=== PATIENT | female | born 1980 | race Caucasian/White ===

== ENCOUNTER 2016-08-27 11:23 | Emergency (ER) | payer OTHER ==
[~2016-08-27] VITALS: Ht 162.6 cm; Wt 95.0 kg
[~2016-08-27 11:23] MED LIST: ALBU6.7H INH; FAMC500T23 PO; PERC7.5T13 PO
[2016-08-27 11:24] VITALS: BP 117/65; PULSE 64; RESP 16; TEMP 97.4; O2SAT 100
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
[2016-08-27 13:10] VITALS: BP 114/66; PULSE 62; RESP 13; O2SAT 98
[2016-08-27] MEDS ORDERED: TRAM150C6 PO (13:13)
--- NOTE | 2016-08-27 13:15 | PD ---
HPI Chief Complaint: Dizziness Time Seen by Provider: 13:04 Travel History International Travel<30 days: No Contact w/Intl Traveler<30days: No Traveled to known affect area: No History of Present Illness HPI 35-year-old female came to the emergency room with history of dizziness, nausea and vomiting that started this morning. Patient gives an elaborate history since the morning when she woke up on all this started. She vomited 4 times and they were all associated with nausea. She says she was not feeling well since she woke up and went to work nonetheless. And then culminated into vomiting and shaking and dizziness especially with changing positions. No history of diarrhea. She is otherwise a healthy person. Her vital signs were stable in triage. She had workup initiated at triage by the provider in triage prior to coming to the ER. ON LICENSE OF [facility] Past Medical History Asthma: Yes Anxiety: Yes Diminished Hearing: No Respiratory: Yes (ASTHMA) Migraines: Yes ?: Not LMP: 08/20/16 : 3 Para: 0 Miscarriage: 2 : 1 Ectopic : Yes Dilation and Curettage (D&C): Yes Past Surgical History Narrative Surgical List of her past medical, surgical, social and family history is reviewed from the nursing note. Other Surgery: Yes (ADNOIDS REMOVED.) Social History Alcohol Use: No Tobacco Use: No Substance Use: No Allergies-Medications (Allergen,Severity, Reaction): Coded Allergies: [place] (Verified Allergy, Severe, HIVES, 08/27/16) Cashew (Verified Allergy, Severe, HIVES, 08/27/16) Iodine (Verified Allergy, Severe, ITCHING AND HIVES, 08/27/16) Morphine (Verified Allergy, Mild, HIVES, 08/27/16) Comments List of her allergies reviewed from the nursing note. Reported Meds & Prescriptions Reported Meds & Active Scripts Active Meclizine (Meclizine HCl) 25 Mg Chew 25 Mg CHEW TID Reported Tramadol ER 24 HR (Tramadol HCl) 150 Mg Caper 150 Mg PO DAILY Narrative Medication List of her home medications reviewed from the nursing note. Review of Systems Except as stated in HPI: all other systems reviewed are Neg Physical Exam Narrative GENERAL: Awake, alert, anxious, moderate distress SKIN: Warm and dry. HEAD: Atraumatic. Normocephalic. EYES: Pupils equal and round. No scleral icterus. No injection or drainage. ENT: No nasal bleeding or discharge. Dry mucous membrane. NECK: Trachea midline. No JVD. CARDIOVASCULAR: Regular rate and rhythm. No murmur appreciated. RESPIRATORY: No accessory muscle use. Clear to auscultation. Breath sounds equal bilaterally. GASTROINTESTINAL: Abdomen soft, non-tender, nondistended. Hepatic and splenic margins not palpable. MUSCULOSKELETAL: No obvious deformities. No clubbing. No cyanosis. No edema. NEUROLOGICAL: Awake and alert. No obvious cranial nerve deficits. Motor grossly within normal limits. Normal speech. PSYCHIATRIC: Appropriate mood and affect; insight and judgment normal. Data Data Last Documented VS Vital Signs Date Time Temp Pulse Resp B/P Pulse Ox O2 Delivery O2 Flow Rate FiO2 08/27/16 13:10 62 13 114/66 98 Room Air 08/27/16 11:24 97.4 Orders Complete Blood Count With Diff (08/27/16 12:33) Comprehensive Metabolic Panel (08/27/16 12:33) Lipase (08/27/16 12:33) Electrocardiogram (08/27/16 12:33) Ct Brain W/O Iv Contrast(Rout) (08/27/16 ) Sodium Chlor 0.9% 1000 Ml Inj (Ns 1000 M (08/27/16 13:30) Ondansetron Inj (Zofran Inj) (08/27/16 13:30) Meclizine (Antivert) (08/27/16 13:30) Labs Laboratory Tests Test 08/27/16 13:05 White Blood Count 10.6 TH/MM3 Red Blood Count 4.40 MIL/MM3 Hemoglobin 12.6 GM/DL Hematocrit 37.9 % Mean Corpuscular Volume 86.2 FL Mean Corpuscular Hemoglobin 28.8 PG Mean Corpuscular Hemoglobin 33.4 % Concent Red Cell Distribution Width 14.2 % Platelet Count 250 TH/MM3 Mean Platelet Volume 7.6 FL Neutrophils (%) (Auto) 83.7 % Lymphocytes (%) (Auto) 11.8 % Monocytes (%) (Auto) 3.9 % Eosinophils (%) (Auto) 0.2 % Basophils (%) (Auto) 0.4 % Neutrophils # (Auto) 8.9 TH/MM3 Lymphocytes # (Auto) 1.2 TH/MM3 Monocytes # (Auto) 0.4 TH/MM3 Eosinophils # (Auto) 0.0 TH/MM3 Basophils # (Auto) 0.0 TH/MM3 CBC Comment DIFF FINAL Differential Comment Sodium Level 140 MEQ/L Potassium Level 3.9 MEQ/L Chloride Level 104 MEQ/L Carbon Dioxide Level 27.9 MEQ/L Anion Gap 8 MEQ/L Blood Urea Nitrogen 13 MG/DL Creatinine 0.79 MG/DL Estimat Glomerular Filtration 83 ML/MIN Rate Random Glucose 102 MG/DL Calcium Level 8.6 MG/DL Total Bilirubin 0.2 MG/DL Aspartate Amino Transf 13 U/L (AST/SGOT) Alanine Aminotransferase 18 U/L (ALT/SGPT) Alkaline Phosphatase 75 U/L Total Protein 8.0 GM/DL Albumin 3.9 GM/DL Lipase 72 U/L [facility] Medical Decision Making Medical Screen Exam Complete: Yes Emergency Medical Condition: Yes Medical Record Reviewed: Yes Differential Diagnosis Vertigo, intracranial bleed, dehydration, electrolyte abnormality Narrative Course 2:45 PM blood test results are back and within normal limits. CAT scan of her head was done and resulted as within normal limit. I have given her IV fluid and by mouth meclizine and IV Zofran. I will reassess her in a bit. If she is feeling better I will discharge her home. 3:04 PM I just reassessed the patient and she says she feels much better. She went to the bathroom and walked back and remained steady on her feet. I'm ready to discharge her at this point. She wants a work note. Procedures EKG Prior to Arrival: No Diagnosis Primary Impression: Vertigo Additional Impression: Dehydration Referrals: Primary Care Physician 2 days Departure Forms: Tests/Procedures, Work Release Enter return to work date: Aug 29, 2016 Additional Instructions: Please return to the ER if the condition worsens or any other new concerns. Otherwise follow-up with her primary care. Take the medication as per the prescription direction. He should not be driving to the open cleared by her primary care. Med/Other Pt SpecificInfo: Prescription(s) given Scripts Meclizine 25 Mg Chew25 Mg CHEW TID #15 TAB Ref 0 Prov:Love Ramirez MD 08/27/16 Love Ramirez MD Aug 27, 2016 13:15
[2016-08-27 13:23] LABS: AUTOMATED NEUTROPHIL # 8.9 TH/MM3 (1.8-7.7); BASOPHIL % 0.4 % (0.0-2.0); EOSINOPHIL % 0.2 % (0.0-4.0); HEMATOCRIT 37.9 % (35.0-46.0); HEMO FLAGS DIFF FINAL; LYMPH % 11.8 % (9.0-44.0); LYMPHOCYTE # 1.2 TH/MM3 (1.0-4.8); MEAN CELL VOLUME 86.2 FL (80.0-100.0); MEAN CORPUSCULAR HEMOGLOBIN 28.8 PG (27.0-34.0); MEAN CORPUSCULAR HGB CONC 33.4 % (32.0-36.0); MONO % 3.9 % (0.0-8.0); NEUT % 83.7 % (16.0-70.0); PLATELET COUNT 250 TH/MM3 (150-450); RED CELL DISTRIBUTION WIDTH 14.2 % (11.6-17.2); WHITE BLOOD COUNT 10.6 TH/MM3 (4.0-11.0)
[2016-08-27] MEDS ORDERED: SODIUM CHLOR 0.9% 1000 ML INJ 1,000 ML IV ONE (13:30)
[2016-08-27] MEDS ORDERED: MECLIZINE HCL 25 MG TAB PO ONE (13:30)
[2016-08-27] MEDS ORDERED: ONDANSETRON HCL 4 MG/2 ML VIAL IV PUSH ONE (13:30)
[2016-08-27 13:39] LABS: ALT (GPT) 18 U/L (10-53); ANION GAP 8 MEQ/L (5-15); AST (GOT) 13 U/L (15-37); BICARBONATE 27.9 MEQ/L (21.0-32.0); BLOOD UREA NITROGEN 13 MG/DL (7-18); CHLORIDE 104 MEQ/L (98-107); GLOMERULAR FILTRATION RATE 83 ML/MIN (>89); POTASSIUM 3.9 MEQ/L (3.5-5.1); SODIUM (NA) 140 MEQ/L (136-145)
[2016-08-27 13:41] LABS: ALKALINE PHOSPHATASE 75 U/L (45-117); TOTAL BILIRUBIN ADULT 0.2 MG/DL (0.2-1.0)
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
[2016-08-27] MEDS ORDERED: MECL25CH CHEW (15:06)
--- NOTE | 2016-08-28 10:09 | EKG ---
Date Performed: 08/27/2016 Time Performed: 12:58:25 PTAGE: 35 years EKG: SINUS BRADYCARDIA BORDERLINE ECG NO PREVIOUS TRACING DOCTOR: Tomi Cordova Interpretating Date/Time 08/28/2016 10:07:46
== END 2016-08-27 15:35 | disposition home or self-care (01) ==
LOC: NEPE 11:23
DX: R42 Dizziness and giddiness (principal); E86.0 Dehydration; R94.31 Abnormal electrocardiogram [ECG] [EKG]
CPT/HCPCS: 70450; 80053; 83690; 85025; 93005; 96361; 96374; 99284; J2405; J7030